=== PATIENT | male | born 1980 | race Caucasian/White ===

== ENCOUNTER 2016-06-09 13:30 | Emergency (ER) | payer OTHER ==
[~2016-06-09] VITALS: Ht 170.2 cm; Wt 74.8 kg
[2016-06-09 13:37] VITALS: BP 140/94
--- NOTE | 2016-06-09 13:39 | ED THROAT/DENTAL COMPLAINT ---
History of Present Illness General Chief Complaint: Sore Throat, Dental Pain Stated Complaint: SORE THROAT Source: patient Exam Limitations: no limitations Vital Signs & Intake/Output Vital Signs & Intake/Output Vital Signs Date Time Temp Pulse Resp B/P Pulse O2 O2 Flow FiO2 Ox Delivery Rate 06/09 1337 100.1 124 18 140/94 96 Room Air Reconcile Medications Amoxicillin/Potassium Clav (Augmentin 875-125 Tablet) 875 MG-125 MG TABLET 1 TAB PO BID PHARYNGITIS Methylprednisolone. (Medrol) 4 MG TAB.DS.PK 1 DP PO AD INFLAMMATION 6 on day 1 then reduce by one tablet daily until gone Triage Nurses Notes Reviewed? yes Onset: Gradual Duration: constant Timing: recent history Injury Environment: home Severity: severe Severity Numbers: 7 HPI: Patient is a 36-year-old male with a past medical history of recurrent strep pharyngitis who presents to the emergency with a three-day history of sore throat and fevers. Patient states that since symptoms are very similar to previous episodes. Patient can tolerate by mouth. Denies any under the jaw swelling or difficulty swallowing. Past History Travel History Traveled to [place] past 21 day No Medical History Any Pertinent Medical History? none Neurological: NONE EENT: NONE Cardiovascular: NONE Respiratory: NONE Gastrointestinal: NONE Hepatic: NONE Renal: NONE Musculoskeletal: NONE Psychiatric: NONE Endocrine: NONE Blood Disorders: NONE Cancer(s): NONE MOTION PICTURE CAMERA OPERATOR/Reproductive: NONE Surgical History Surgical History: non-contributory Psychosocial History What is your primary language Greenlandic Tobacco Use: Current Daily Use Daily Tobacco Use Amount/Type: => 5 Cigarettes daily ETOH Use: denies use Illicit Drug Use: denies illicit drug use Family History Hx Contributory? No Review of Systems Review of Systems Constitutional: Reports: see HPI. EENTM: Reports: see HPI, throat pain, throat swelling. Respiratory: Reports: no symptoms. Cardiovascular: Reports: no symptoms. GI: Reports: no symptoms. Genitourinary: Reports: no symptoms. Musculoskeletal: Reports: no symptoms. Skin: Reports: no symptoms. Neurological/Psychological: Reports: no symptoms. Hematologic/Endocrine: Reports: no symptoms. Immunologic/Allergic: Reports: no symptoms. All Other Systems: Reviewed and Negative Physical Exam Physical Exam General Appearance: no apparent distress, alert, comfortable Mouth/Throat: pharynx swelling, pharynx tenderness, PHARYNX ERYTHEMA NOTED NO EXUDATES Comments: Well-developed well-nourished person in no acute distress HEENT: Normal EENT exam, extraocular motion intact, no nystagmus. Pupils equally round and reactive to light and accommodation. Nose is atraumatic. External auditory canal and Tympanic membranes clear. No submandibular swelling Tonsils are not communicating No hot potato voice sound Neck: Supple, no lymphadenopathy, normal range of motion without pain or tenderness Back: Nontender, no CVA tenderness. Cardiovascular: Regular rate and rhythms no murmurs rubs or gallops, normal JVP Respiratory: Chest nontender. No respiratory distress.breath sounds clear to auscultation bilaterally Abdomen: Soft, nontender nondistended, no appreciable organomegaly. Normal bowel sounds. No ascites Extremity: No edema, no calf tenderness to palpation, normal and equal pulses. Neuro: Alert oriented x3, motor sensory normal, Skin: No appreciable rash on exposed skin, skin is warm and dry. Psych: Mood and affect is normal, memory and judgment is normal. Core Measures ACS in differential dx? No Severe Sepsis Present: No Septic Shock Present: No Progress Differential Diagnosis: carious tooth, epiglottitis, Ludwigs angina, meningitis, odontogenic abscess, cholo-tonsillar abscess, pharyngeal for. body, stomatitis/ gingivitis, strep pharyngitis, tooth fracture Plan of Care: Orders Procedure Date/time Status THROAT CULTURE W/QUICK STREP 06/09 1333 Complete Current Medications Sig/Tracy Start time Last Medication Dose Stop Time Status Admin Prednisone 60 MG ONCE ONE 06/09 1415 UNVr 06/09 1416 And due to his her present on his exam findings and positive strep pharyngitis will be treated with prednisone steroids and anti-inflammatories. Patient can tolerate by mouth No suspicion at this time of epiglottitis or Kevin angina or peritonsillar abscess (TIFFANIE CELESTIN) Departure Departure Disposition: HOME OR SELF CARE Condition: Stable Clinical Impression Primary Impression: Streptococcal pharyngitis Additional Instructions: As discussed you've been giving THE first dose of prednisone to the emergency room, please begin the prescription Medrol Dosepak tomorrow for inflammation. Begin the prescription MAGIC mouthwash for sore throat. Begin the prescription of Augmentin as directed for the full course. Prescriptions are waiting [facility]. If symptoms worsen return to emergency room. Follow-up with the primary care doctor in 3 days if no better. BEGIN Ibuprofen for pain and inflammation Begin Tylenol for fevers Departure Forms: Customer Survey General Discharge Information Prescriptions: Current Visit Scripts Amoxicillin/Potassium Clav (Augmentin 875-125 Tablet) 1 TAB PO BID #20 TAB Methylprednisolone. (Medrol) 1 DP PO AD #1 DP 6 on day 1 then reduce by one tablet daily until gone
[2016-06-09] MEDS ORDERED: MEDROL4 M2 PO (14:04)
[2016-06-09] MEDS ORDERED: AUGMENTIN 875-1 EACH PO (14:04)
== END 2016-06-09 14:17 ==
LOC: ERH 13:30
DX: J02.0 Streptococcal pharyngitis (principal); Z72.0 Tobacco use

== ENCOUNTER 2016-07-02 12:00 | Emergency (ER) | payer OTHER ==
[~2016-07-02] VITALS: Ht 170.2 cm; Wt 74.8 kg
[~2016-07-02 12:00] MED LIST: AUGMENTIN 875-1 EACH PO; MEDROL4 M2 PO
[2016-07-02] MEDS ORDERED: ADDERALL 20 MG20 MG PO (12:33)
--- NOTE | 2016-07-02 12:33 | ED THROAT/DENTAL COMPLAINT ---
History of Present Illness General Chief Complaint: Sore Throat, Dental Pain Stated Complaint: SORE THROAT Source: patient Exam Limitations: no limitations Vital Signs & Intake/Output Vital Signs & Intake/Output Vital Signs Date Time Temp Pulse Resp B/P Pulse O2 O2 Flow FiO2 Ox Delivery Rate 07/02 1329 98.0 90 20 140/76 98 Room Air 07/02 1205 97.6 98 16 148/70 98 Room Air Allergies Uncoded Allergies: FRESH FRUIT (Intermediate, ITCHY THROAT 07/02/16) Triage Note: 36 YEAR OLD MALE STATES THAT HE WAS DIAGNOSED WITH STREP AND STARTED ON ABT 2 WEEKS AGO, STATES THAT R SIDE THROAT STILL SWOLLEN AND HAS R EAR PAIN , STATES THAT HE THINKS ABT DIDN'T WORK DUE TO HE DRINKS A LOT OF ALCOHOL Triage Nurses Notes Reviewed? yes Onset: Gradual Duration: week(s): (4) Timing: recent history Injury Environment: home Severity: moderate Severity Numbers: 7 No Modifying Factors: none HPI: Patient is a 36-year-old male presenting to the emergency department chief complaining of right-sided sore throat has been going on for the past 4 weeks. He was seen and evaluated here about a month ago and diagnosed with strep throat. He was put on Augmentin. He reports that he was drinking alcohol during antibiotic course and feels like his symptoms never actually went away. Pain is sharp and stabbing, worse with swallowing. He reports pain radiates to the right ear. Denies fevers chills nausea or vomiting chest pain or shortness of breath. Has been using Tylenol without relief. (HORACE TRACY) Reconcile Medications Dextroamphetamine/Amphetamine (Adderall 20 MG Tablet) 20 MG TABLET 1 TAB PO TID UNKNOWN (Reported) Penicillin V Potassium 500 MG TABLET 1 TAB PO TID PRN STREP (NILESH FARFAN DO) Past History Travel History Traveled to [place] past 21 day No Medical History Any Pertinent Medical History? see below for history Neurological: NONE EENT: NONE Cardiovascular: NONE Respiratory: NONE Gastrointestinal: NONE Hepatic: NONE Renal: NONE Musculoskeletal: NONE Psychiatric: NONE Endocrine: NONE Blood Disorders: NONE Cancer(s): NONE POLICY WRITER SALES/Reproductive: NONE Surgical History Surgical History: non-contributory Psychosocial History What is your primary language Finnish Tobacco Use: Never used ETOH Use: denies use Illicit Drug Use: denies illicit drug use Family History Hx Contributory? No (HORACE TRACY) Review of Systems Review of Systems Constitutional: Reports: no symptoms. Comments Review of systems: See HPI, All other systems negative. Constitutional, no chills fever or weight loss HEENT: No visual changes no congestion Cardiovascular: No chest pain ,palpitation , orthopnea or ankle swelling Skin, no jaundice no rashes Respiratory: No dyspnea cough sputum or hemoptysis GI: No nausea no vomiting Muscle skeletal: no back pain, no neck pain, Neurologic: No numbness no confusion Psych: No stress anxiety Immunology: No splenectomy or history of AIDS (HORACE TRACY) Physical Exam Physical Exam General Appearance: well developed/nourished, no apparent distress, alert, awake , comfortable Mouth/Throat: moderate pharyngeal erythema, Comments: Well-developed well-nourished person in no acute distress HEENT: Pupils equally round and reactive to light and accommodation. Nose is atraumatic. External auditory canal and Tympanic membranes clear. Pharynx is erythematous, injected. No exudate. No tonsillar enlargement. No swelling or edema. Neck: Supple, no lymphadenopathy, normal range of motion without pain or tenderness Cardiovascular: Regular rate and rhythms no murmurs rubs or gallops, normal JVP Respiratory: Chest nontender. No respiratory distress.breath sounds clear to auscultation bilaterally Neuro: Alert oriented x3 Skin: No appreciable rash on exposed skin, skin is warm and dry. Psych: Mood and affect is normal, memory and judgment is normal. Core Measures ACS in differential dx? No Severe Sepsis Present: No Septic Shock Present: No (HORACE TRACY) Progress Differential Diagnosis: strep pharyngitis, medication noncompliance, strep, viral pharyngitis, upper respiratory infection Plan of Care: Orders Procedure Date/time Status THROAT CULTURE W/QUICK STREP 07/02 1233 Complete Departure Departure Time of Disposition: 1319 Disposition: HOME OR SELF CARE Condition: Stable Clinical Impression Primary Impression: Strep pharyngitis Referrals: PATIENT HAS NO PRIMARY CARE DR (PCP/Family) Additional Instructions: Follow-up with your primary care physician take penicillin as prescribed. Make she did not drink while on antibiotics as they could decrease efficacy of antibiotic. Increase fluids. Take [id number] Motrin and Tylenol for pain. Departure Forms: Customer Survey General Discharge Information Prescriptions: Current Visit Scripts Penicillin V Potassium 1 TAB PO TID PRN STREP #30 TAB (HORACE TRACY) PA/CREEL CLEANER Co-Sign Statement Statement: ED Attending supervision documentation- [] I saw and evaluated the patient. I have also reviewed all the pertinent lab results and diagnostic results. I agree with the findings and the plan of care as documented in the PA's/CREEL CLEANER's documentation. [X] I have reviewed the ED Record and agree with the PA's/CREEL CLEANER's documentation. [] Additions or exceptions (if any) to the PAs/CREEL CLEANER's note and plan are summarized below: [] (NILESH FARFAN DO)
[2016-07-02] MEDS ORDERED: PENICILLIN V P500 M1 PO (13:21)
[2016-07-02 13:29] VITALS: BP 140/76
== END 2016-07-02 13:29 ==
LOC: ERH 12:00
DX: J02.0 Streptococcal pharyngitis (principal)